=== PATIENT | female | born 1990 | race American Indian/Alaskan Native ===

== ENCOUNTER 2018-09-20 17:25 | Inpatient (IN) | payer MEDICAID ==
[2018-09-20] MEDS ORDERED: AMBIEN PO PRN (18:29)
[2018-09-20 19:52] LABS: Hematocrit 37.9 % (30.3-42.9); Hemoglobin 13.1 gm/dl (10.1-14.3); Red Blood Count 4.28 M/mm3 (3.65-5.03)
[2018-09-20 19:53] LABS: Basophils % (Auto) 0.2 % (0.0-1.8); Eosinophils # (Auto) 0.1 K/mm3 (0.0-0.4); Eosinophils % (Auto) 0.7 % (0.0-4.3); Lymphocytes # (Auto) 2.6 K/mm3 (1.2-5.4); Lymphocytes % (Auto) 25.4 % (13.4-35.0); Mean Corpuscular HGB Conc 35 % (30-34); Mean Corpuscular Volume 89 fl (79-97); Monocytes # (Auto) 0.5 K/mm3 (0.0-0.8); Monocytes % (Auto) 5.2 % (0.0-7.3); Platelet Count 267 K/mm3 (140-440); Red Cell Distribution Width 12.7 % (13.2-15.2)
--- NOTE | 2018-09-20 19:56 | History and Physical Report ---
History of Present Illness Date of examination: 09/20/18 Date of admission: 09/20/18 17:25 Chief complaint: Here for a C Section History of present illness: Pt is a 28yo BF EDC 09/30/18; EGA 38 4/7 weeks sent by [facility] for delivery due to macrosomia (EFW 4087g, 95%) with IDDM, DAMON 3.0 and BPP 6/10 She received care at [facility] since 21 weeks and co-managed by [facility]. Previous delivery complicated by shoulder dystocia with brachial plexus injury and 4th degree vaginal laceration. She was originally scheduled for a Primary C Section 09/24/18, but sent for delivery today by [facility]. records are available and GBS is unknown. Past History Past Medical History: diabetes (on Insulin) Past Surgical History: no surgical history [employer] History: herpes Social history: no significant social history, single - Obstetrical History Expected Date of Delivery: 09/30/18 Actual Gestation: 38 Week(s) 4 Day(s) : 2 Medications and Allergies Allergies Allergy/AdvReac Type Severity Reaction Status Date / Time No Known Allergies Allergy Unverified 09/20/18 17:41 Active Meds: Active Medications Citric Acid/Sodium Citrate (Bicitra) 30 ml PO ONCE ONE Stop: 09/21/18 11:31 Famotidine (Pepcid) 20 mg IV ONCE ONE Stop: 09/21/18 11:31 Cefazolin Sodium (Ancef/Sterile Water 2 Gm/20 Ml) 2 gm in 20 mls @ 80 mls/hr IV PREOP NR; Protocol Stop: 09/21/18 23:59 Lactated Ringer's (Lactated Ringers) 1,000 mls @ 2,250 mls/hr IV PREOP MARCIA Stop: 09/22/18 09:57 Oxytocin/Sodium Chloride (Pitocin/Ns 20 Unit/1000ml Drip) 20 units in 1,000 mls @ 0 mls/hr IV TITR MARCIA Lactated Ringer's (Lactated Ringers) 1,000 mls @ 125 mls/hr IV DIRECT MARCIA Metoclopramide HCl (Reglan) 10 mg IV ONCE ONE Stop: 09/21/18 11:31 Zolpidem Tartrate (Ambien) 10 mg PO QHS PRN PRN Reason: Insomnia Review of Systems All systems: negative - Vital Signs Vital signs: Vital Signs Pulse BP 141 H 128/87 09/20/18 18:20 09/20/18 18:20 Temp Pulse Resp BP Pulse Ox 136 H 110/74 09/20/18 18:44 09/20/18 18:44 - Physical Exam Breasts: Positive: deferred Cardiovascular: Regular rate Lungs: Positive: Clear to auscultation Abdomen: Positive: normal appearance Genitourinary (Female): Positive: normal external genitalia Uterus: Positive: enlarged Extremities: Positive: normal - Obstetrical FHR: category 2 Uterine Contraction Monitor Mode: External Uterine Contraction Pattern: Irregular Uterine Tone Measurement Phase: Contraction Uterine Contraction Intensity: Mild Results Result Diagrams: 09/20/18 19:23 All other labs normal. Assessment and Plan - Patient Problems (1) 38 weeks gestation of Onset Date: 09/20/18 Current Visit: Yes Status: Acute Plan to address problem: A: IUP @ 38 4/7 weeks IDDM Suspected macrosomia Oligohydramnios Non-reassuring surveillance P: Admit to L&D for Primary C Section (2) Diabetes mellitus, insulin dependent (IDDM), controlled Onset Date: 09/20/18 Current Visit: Yes Status: Acute (3) Oligohydramnios without rupture of membranes in third trimester Onset Date: 09/20/18 Current Visit: Yes Status: Acute Qualifiers: Fetus number: single or unspecified fetus Qualified Code(s): O41.03X0 - Oligohydramnios, third trimester, not applicable or unspecified (4) Non-reassuring electronic monitoring tracing Onset Date: 09/20/18 Current Visit: Yes Status: Acute
[2018-09-20] MEDS ORDERED: BICITRA PO ONE (20:21)
[2018-09-20] MEDS ORDERED: PEPCID IV ONE (20:22)
[2018-09-20] MEDS ORDERED: REGLAN IV ONE (20:41)
[2018-09-20] MEDS ORDERED: ANCEF/STERILE WATER 2 GM/20 ML 2 GM/20 ML SYRINGE IV NR (21:00)
[2018-09-20] MEDS ORDERED: PITOCin/NS 20 UNIT/1000ML DRIP 20 UNITS/1,000 ML BAG IV SCH (21:00)
[2018-09-20] MEDS ORDERED: LACTATED RINGERS 1,000 ML IV SCH (21:00)
--- NOTE | 2018-09-20 21:16 | Anesthesia Day of Surgery ---
Anesthesia Day of Surgery - Day of Surgery Patient Examined: Yes Patient H&P Reviewed: Yes Patient is NPO: Yes Beta Blockers: No Cardiac Clearance: No Pulmonary Clearance: No Mario's Test: N/A
[2018-09-20] MEDS ORDERED: ZOFRAN IV PRN (21:18)
[2018-09-20] MEDS ORDERED: PHENERGAN PR PRN (21:18)
[2018-09-20] MEDS ORDERED: NARCAN 0.4 MG/1 ML IV PRN ×2 (21:18→23:19)
[2018-09-20] MEDS ORDERED: PHENERGAN PO PRN (21:18)
[2018-09-20] MEDS ORDERED: DILAUDID IV PRN (21:18)
[2018-09-20] MEDS: LACTATED RINGERS 1,000 ML IV SCH ×2 (21:18→21:50)
--- NOTE | 2018-09-20 21:18 | Anesthesia Consultation ---
Anesthesia Consult and Med Hx - Airway Anesthetic Teeth Evaluation: Poor, Chipped ROM Head & Neck: Adequate Mental/Hyoid Distance: Adequate Mallampati Class: Class II Intubation Access Assessment: Probably Good - Pulmonary Exam CTA: Yes - Cardiac Exam Cardiac Exam: RRR - Pre-Operative Health Status ASA Pre-Surgery Classification: ASA3 Proposed Anesthetic Plan: Epidural - Pulmonary Hx Smoking: No Hx Asthma: No Hx Respiratory Symptoms: No SOB: No COPD: No Home Oxygen Therapy: No Hx Pneumonia: No Hx Sleep Apnea: No - Cardiovascular System Hx Hypertension: No Hx Coronary Artery Disease: No Hx Heart Attack/AMI: No Hx Angina: No Hx Percutaneous Transluminal Coronary Angioplasty (PTCA): No Hx Cardia Arrhythmia: No Hx Pacemaker: No Hx Internal Defibrillator: No Hx Valvular Heart Disease: No Hx Heart Murmur: No Hx Peripheral Vascular Disease: No - Central Nervous System Hx Neuromuscular Disorder: No Hx Seizures: No CVA: No Hx Back Pain: No Hx Psychiatric Problems: No - Gastrointestinal Hx Ulcer: No Hx Gastroesophageal Reflux Disease: No - Endocrine Hx Renal Disease: No Hx End Stage Renal Disease: No Hx Cirrhosis: No Hx Liver Disease: No Hx Insulin Dependent Diabetes: No Hx Non-Insulin Dependent Diabetes: No Hx Thyroid Disease: No Hx Hypothyroidism: No Hx Hyperthyroidism: No - Hematic Hx Anemia: No Hx Sickle Cell Disease: No - Other Systems Hx Alcohol Use: No Hx Substance Use: No Hx Cancer: No Hx Obesity: No
[2018-09-20] MEDS ORDERED: SODIUM CHLORIDE FLUSH SYRINGE 10 ML IV NR ×2 (22:00→23:45)
[2018-09-20] MEDS ORDERED: WATER FOR IRRIG STERILE IR ONE (22:25)
[2018-09-20] MEDS ORDERED: NACL 0.9% IR ONE (22:25)
[2018-09-20] MEDS ORDERED: ASTRAMORPH PF 10MG/10ML ONE (22:30)
[2018-09-20] MEDS ORDERED: ZOFRAN ONE (22:44)
--- NOTE | 2018-09-20 23:09 | Operative Report ---
Operative Report Operative Report: Date of procedure: 09/20/2018 Pre-operative diagnosis: 1. Intrauterine at 38-4/7 weeks 2. Insuli n-dependent diabetes mellitus 3. Suspected macrosomia 4. Oligohydramnios 5. Nonreassuring surveillance Post-operative diagnosis: Same Procedure name(s): Primary low transverse section Surgeon: Erich Hughes MD Land Management Supervisor: None Anesthesia: Spinal anesthesia by Dr. Massey EBL: 800 mls Findings: A 3708 g male infant Apgars 8 at 1 minute and 8 at 5 minutes. Clear amniotic fluid. Normal uterus. Normal tubes and ovaries bilaterally. Procedure: After the patient was prepped and draped in usual sterile fashion, and after satisfactory level of epidural anesthesia was obtained, the skin knife was used to make a transverse skin incision. The incision was excised down to layer of the fascia, which was nicked in the midline and extended laterally using the Bovie cautery. The rectus muscles were dissected off the rectus fascia both superiorly and inferiorly. The rectus bellies in the midline, and the peritoneum was entered under direct visualization. The peritoneal incision was extended superiorly and inferiorly. A bladder flap was created and the bladder blade was then placed. The uterus was scored in a curvilinear linear fashion, entered in the midline revealing clear amniotic fluid. The 's head was delivered onto the surgical field, and the oropharynx and nasopharynx were bulb suctioned. The rest of the 's body was delivered, cord was doubly clamped and cut and the infant was handed to the waiting respiratory team. Cord blood was then obtained. The placenta was manually removed from the uterus, and the uterus removed from its normal anatomical position. After gentle uterine lavage, the incision was inspected and found to be without extensions. It was then closed in 2 layers using 0 Vicryl suture in a running interlocking fashion, the second layer imbricating the first. After good hemostasis was achieved, copious amounts or irrigation was performed, and the gutters were suctioned free of blood and blood clots. Tisseel sealant was sprayed across the uterine incision. The uterus was then returned to its normal anatomical position, and after excellent hemostasis assured, the peritoneum was re-approximated using 3-0 Vicryl suture in a running interlocking fashion, and then the rectus muscles were re-approximated using 3-0 Vicryl suture in a calcbo-up-[id number] configuration. The fascia was then re-approx imated using 0 Vicryl suture in running interlocking fashion. The subcutaneous layer was made hemostatic using Bovie cautery, the Tisseel sealant was sprayed across the fascial incision and the skin edges re-approximated using 4-0 Vicryl suture in a sub-cuticular fashion. Patient tolerated the procedure well was transported to recovery in stable condition.
[2018-09-20] MEDS ORDERED: TUCKS PAD TP PRN (23:19)
[2018-09-20] MEDS ORDERED: TORADOL IV PRN (23:19)
[2018-09-20] MEDS ORDERED: MYLICON PO PRN (23:19)
[2018-09-20] MEDS ORDERED: D50W (25GM) Syringe IV PRN (23:19)
[2018-09-20] MEDS ORDERED: TYLENOL PO PRN (23:19)
[2018-09-20] MEDS ORDERED: SENOKOT PO PRN (23:19)
[2018-09-20] MEDS ORDERED: LANSINOH TP PRN (23:19)
[2018-09-20] MEDS ORDERED: MILK OF MAGNESIA PO PRN (23:19)
[2018-09-20] MEDS ORDERED: NORCO 5/325 PO PRN (23:19)
[2018-09-20] MEDS ORDERED: D5LR 1,000 ML IV SCH (23:45)
[2018-09-21] MEDS: PITOCin/NS 20 UNIT/1000ML DRIP 20 UNITS/1,000 ML BAG IV SCH ×2 (00:08)
[2018-09-21] MEDS ORDERED: METHERGINE IM ONE (02:39)
[2018-09-21] MEDS ORDERED: BENADRYL IV PRN (03:04)
[2018-09-21] MEDS: PERCOCET 5/325 PO PRN (03:08)
[2018-09-21] MEDS ORDERED: BOOSTRIX IM ONE (06:00)
[2018-09-21] MEDS ORDERED: M-M-R II VACCINE SUB-Q ONE (06:00)
[2018-09-21 06:35] LABS: Hematocrit 36.8 % (30.3-42.9); Hemoglobin 12.7 gm/dl (10.1-14.3)
[2018-09-21] MEDS: ANCEF/NS 1 GM/50 ML 1 GM/50 ML BAG IV SCH ×2 (06:38→15:05)
[2018-09-21] MEDS: LACTATED RINGERS 1,000 ML IV SCH ×2 (06:39→12:41)
[2018-09-21] MEDS: HumuLIN R SUB-Q SCH ×2 (07:30→12:30)
[2018-09-21] MEDS ORDERED: LACTATED RINGERS 1,000 ML IV SCH ×2 (09:30→12:00)
--- NOTE | 2018-09-21 10:03 | Progress Note ---
Assessment and Plan - Patient Problems (1) S/P primary low transverse Current Visit: Yes Status: Acute Plan to address problem: POD 1 - stable Continue routine postop orders Discontinue IVF & Kelly catheter 12-hrs post-surgery Ambulation and use of incentive spirometer encouraged Anticipate discharge in 24-48 hours (2) Diabetes mellitus, insulin dependent (IDDM), controlled Onset Date: 09/20/18 Current Visit: Yes Status: Acute Plan to address problem: Continue accuchecks per protocol Continue sliding scale insulin Subjective - Subjective Date of service: 09/21/18 Principal diagnosis: POD #1; s/p Primary LTCS Interval history: see H&P and Operative Report Patient reports: appetite normal, pain well controlled, other (kelly catheter in place and draining well), no flatus, no bowel movement : doing well, bottle feeding Objective - Vital Signs Latest vital signs: Vital Signs Temp Pulse Resp BP BP Pulse Ox 09/21/18 08:02 98.1 F 118 H 18 124/76 96 09/21/18 04:40 98.5 F 112 H 18 118/75 09/21/18 02:54 18 09/21/18 01:30 94.7 F L 93 H 18 125/83 09/21/18 00:25 93 H 14 114/69 98 09/21/18 00:15 94 H 13 123/75 99 09/21/18 00:00 94 H 12 112/67 100 09/20/18 23:45 94 H 12 114/66 99 09/20/18 23:30 14 104/59 99 09/20/18 23:25 97.6 F 101 H 15 93/45 100 09/20/18 18:44 136 H 110/74 09/20/18 18:20 141 H 128/87 Intake and Output 09/20/18 09/21/18 09/21/18 23:59 07:59 15:59 Intake Total 1566.667 153.333 Output Total 900 700 Balance 666.667 -546.667 Intake: IV 1566.667 33.333 Lactated Ringers 1,000 ml 66.667 @ 125 mls/hr IV DIRECT MARCIA Rx#:[id number] PITOCin/NS 20 UNIT/1000ML 33.333 DRIP 20 units In 1,000 ml @ 250 mls/hr IV DIRECT MARCIA Rx#:[id number] Oral 120 Output: Urine 900 700 Indwelling Catheter 700 Uretheral (Kelly) 600 Other: Total, Intake Amount 120 Total, Output Amount 700 Weight 94.055 kg Estimated Blood Loss 800 - Exam Cardiovascular: Present: Regular rate Lungs: Present: Clear to auscultation Abdomen: Present: normal appearance, soft Vulva: both: normal Uterus: Present: normal, firm, fundal height at umbilicus Extremities: Present: normal Incision: Present: normal, dry, intact, dressed Comments: small lochia - Labs Labs: Abnormal lab results 09/20/18 Range/Units 19:23 MCHC 35 H (30-34) % RDW 12.7 L (13.2-15.2) %
[2018-09-21] MEDS ORDERED: ANCEF/STERILE WATER 2 GM/20 ML 2 GM/20 ML SYRINGE IV NR (11:00)
[2018-09-21] MEDS: FEOSOL PO SCH (11:22)
[2018-09-21] MEDS: PRENATAL VITAMIN PO SCH (11:22)
[2018-09-21] MEDS ORDERED: PEPCID IV ONE (11:30)
[2018-09-21] MEDS ORDERED: REGLAN IV ONE (11:30)
[2018-09-21] MEDS ORDERED: BICITRA PO ONE (11:30)
[2018-09-21] MEDS ORDERED: PITOCin/NS 20 UNIT/1000ML DRIP 20 UNITS/1,000 ML BAG IV SCH (12:30)
[2018-09-21] MEDS: IBUPROFEN PO PRN (16:21)
[2018-09-22] MEDS: IBUPROFEN PO PRN ×3 (00:07→21:02)
[2018-09-22] MEDS: HumuLIN R SUB-Q SCH ×2 (00:53→10:32)
[2018-09-22] MEDS: PRENATAL VITAMIN PO SCH ×2 (08:48→10:33)
[2018-09-22] MEDS: FEOSOL PO SCH ×2 (08:48→10:33)
--- NOTE | 2018-09-22 10:56 | Progress Note ---
Assessment and Plan A: /postop day 2 S/P primary low transverse section. P: Anticipate discharge tomorrow. Continue ambulation. Subjective - Subjective Date of service: 09/22/18 Principal diagnosis: POD #2; s/p Primary LTCS Interval history: /postop day 2 S/P primary low transverse section. Doing well. Patient reports a small amount of lochia. Patient is passing gas and voiding without difficulty. She is ambulating well and tolerating a regular diet. Patient denies headache, chest pain, cough, shortness of breath, abdominal pain, leg pain, heavy bleeding, nausea or vomiting. Patient reports: appetite normal, voiding normally, pain well controlled, flatus, ambulating normally, no dizzy ambulation, no bowel movement, no nauseated : doing well Objective - Vital Signs Latest vital signs: Vital Signs Temp Pulse Resp BP BP Pulse Ox 09/22/18 07:49 97.8 F 109 H 18 112/73 97 09/22/18 01:40 98.5 F 116 H 18 111/66 98 09/22/18 00:07 17 09/21/18 17:21 98.2 F 112 H 20 118/78 98 09/21/18 12:55 97.9 F 112 H 20 116/72 97 Intake and Output 09/21/18 09/22/18 09/22/18 23:59 07:59 15:59 Intake Total 1320 120 Output Total 550 300 Balance -550 1020 120 Intake: Oral 480 120 Intake, Free Water 840 Output: Urine 550 300 Indwelling Catheter 300 Void 250 300 Other: Total, Intake Amount 480 120 Total, Output Amount 250 300 # Voids Indwelling Catheter 1 Void 1 # Bowel Movements 1 - Exam Cardiovascular: Present: Regular rate, Normal S1, Normal S2 Lungs: Present: Clear to auscultation Abdomen: Present: normal appearance, soft, normal bowel sounds. Absent: distention, tenderness, guarding, rigidity Uterus: Present: normal, firm, fundal height below umbilicus. Absent: bogginess, tenderness Extremities: Present: normal. Absent: tenderness, edema Incision: Present: normal, dry, intact - Labs Labs: Abnormal lab results 09/21/18 09/21/18 09/22/18 Range/Units 01:05 12:03 06:57 POC Glucose 61 L 61 L 146 H (70-105)
[2018-09-22] MEDS: PERCOCET 5/325 PO PRN ×2 (11:18→17:26)
[2018-09-22 14:01] LABS: Hematocrit 34.7 % (30.3-42.9); Hemoglobin 11.6 gm/dl (10.1-14.3)
[2018-09-23] MEDS: HumuLIN R SUB-Q SCH ×4 (01:32→17:09)
[2018-09-23] MEDS: PERCOCET 5/325 PO PRN ×4 (01:34→21:04)
[2018-09-23] MEDS: IBUPROFEN PO PRN ×2 (08:58→14:36)
[2018-09-23] MEDS: PRENATAL VITAMIN PO SCH (08:59)
[2018-09-23] MEDS: FEOSOL PO SCH (08:59)
--- NOTE | 2018-09-23 18:06 | Progress Note ---
Assessment and Plan A: /postop day 3 S/P primary low transverse section. P: Consulted with Dr. Hughes re: maternal heart rate/BP. Dr. Hughes states it is OK to discharge patient home and have patient follow up in office this week to recheck HR/BP. Patient states she desires to be discharged and agrees to follow up at [facility] on 09/24/18 or 09/25/18. Discussed with patient discharge instructions and warning signs. Advised patient to avoid intercourse, lifting and heavy housework, tub baths (may take showers), driving, and stair climbing. Advised patient re: care of incision and activity restrictions. Advised patient to follow up at [facility] in 1-2 days and also in 1 week. Patient voiced understanding of all instructions. Subjective - Subjective Date of service: 09/23/18 Principal diagnosis: POD #3; s/p Primary LTCS Interval history: /postop day 3 S/P primary low transverse section. Doing well. Patient reports a small amount of lochia. Patient is passing gas and voiding without difficulty. She is ambulating well and tolerating a regular diet. Patient denies headache, chest pain, cough, shortness of breath, abdominal pain, leg pain, heavy bleeding, nausea or vomiting. Patient reports: appetite normal, voiding normally, pain well controlled, flatus, ambulating normally, no dizzy ambulation, no nauseated [place]: doing well Objective - Vital Signs Latest vital signs: Vital Signs Temp Pulse Resp BP BP Pulse Ox 09/23/18 16:01 97.3 F L 112 H 20 129/85 97 09/23/18 12:40 104 H 20 139/85 97 09/23/18 08:56 98.3 F 109 H 20 133/83 96 09/23/18 01:34 20 09/23/18 01:31 98.5 F 115 H 18 116/76 98 09/22/18 21:02 20 Intake and Output 09/23/18 09/23/18 09/23/18 07:59 15:59 23:59 Intake Total 480 Balance 480 Intake: Oral 480 Other: Total, Intake Amount 240 # Voids Void 4 1 - Exam Cardiovascular: Present: Regular rate, Normal S1, Normal S2 Lungs: Present: Clear to auscultation Abdomen: Present: normal appearance, soft, normal bowel sounds. Absent: distention, tenderness, guarding, rigidity Uterus: Present: normal, firm, fundal height below umbilicus. Absent: bogginess, tenderness Extremities: Present: normal. Absent: tenderness, edema Incision: Present: normal, dry, intact - Labs Labs: Abnormal lab results 09/22/18 09/23/18 Range/Units 22:10 11:37 POC Glucose 108 H 60 L (70-105)
--- NOTE | 2018-09-23 18:12 | Discharge Summary ---
Providers - Providers Date of Admission: 09/20/18 17:25 Date of discharge: 09/23/18 Attending physician: JOSE MARTIN MICHAEL MD Primary care physician: JOSE MARTIN MICHAEL MD Hospitalization Reason for admission: section Delivery: Procedure: primary low transverse Incision: normal, dry, intact Other procedures: none complications: none Discharge diagnosis: IUP at term delivered [place] baby: male Pertinent studies: Labs Hospital course: Normal hospital course. Condition at discharge: Good Disposition: DC-01 TO HOME OR SELFCARE Plan - Discharge Medications Prescriptions: Ferrous Sulfate [Feosol 325 MG tab] 325 mg PO BID #60 tablet HYDROcodone/APAP 5-325 [[place] 5/325] 1 each PO Q6HR PRN #30 tablet PRN Reason: Pain Ibuprofen [Motrin] 800 mg PO Q8HR PRN #30 tablet PRN Reason: Pain, Moderate (4-6) Pnv No.95/Ferrous Fum/Folic AC [Prenavite Tablet] 1 each PO DAILY #30 tablet - Provider Discharge Summary Activity: routine, no sex for 6 weeks, no heavy lifting 4 weeks, no strenuous exercise Diet: routine Instructions: routine Additional instructions: Call your doctor immediately for: * Fever > 100.5 * Heavy vaginal bleeding ( >1 pad per hour) * Severe persistent headache * Shortness of breath * Reddened, hot, painful area to leg or breast * Drainage or odor from incision. * Keep incision clean and dry at all times and follow doctor's instructions regarding bathing/showering - Follow up plan Follow up: JOSE MARTIN MICHAEL MD [Primary Care Provider] - 09/25/18
[2018-09-23 22:27] VITALS: BP 129/88
== END 2018-09-23 22:18 | disposition home or self-care (01) | DRG 765 ==
LOC: LD 17:25 → OB 09-21 01:34
PROVIDERS: ADMIT Obstetrics & Gynecology; ATTEND Obstetrics & Gynecology
PROC: 10D00Z1 Extraction of Products of Conception, Low, Open Approach (ICD-10-PCS; principal; 2018-09-20)
PROC: 3E0234Z Introduction of Serum, Toxoid and Vaccine into Muscle, Percutaneous Approach (ICD-10-PCS; 2018-09-21)
DX: O41.03X0 Oligohydramnios, third trimester, not applicable or unspecified (principal); O24.32 Unspecified pre-existing diabetes mellitus in childbirth; O76 Abnormality in fetal heart rate and rhythm complicating labor and delivery; O36.63X0 Maternal care for excessive fetal growth, third trimester, not applicable or unspecified; Z3A.38 38 weeks gestation of pregnancy; Z37.0 Single live birth; Z79.4 Long term (current) use of insulin; Z23 Encounter for immunization
CPT/HCPCS: 36415; 82962; 85014; 85018; 85025; 86850; 86900; 86901; G0378; J0690; J1200; J1885; J2210; J2274; J2405; J2590; J2765; J7120